=== PATIENT | male | born 1960 | race Caucasian/White ===

== ENCOUNTER 2019-12-25 07:47 | Day surgery (SDC) | payer OTHER ==
[~2019-12-25] VITALS: Ht 190.5 cm; Wt 130.0 kg
[2019-12-25] MEDS ORDERED: NAPROSYN500 MG PO (07:57)
[2019-12-25] MEDS ORDERED: ZOCOR 40MG40 MG PO (07:57)
[2019-12-25] MEDS ORDERED: TYLENOL 500MG500 MG PO (07:57)
[2019-12-25 08:01] VITALS: BP 128/88; PULSE 58; TEMP 97.3
[2019-12-25 09:45] VITALS: BP 100/74; PULSE 56; TEMP 98.4
--- NOTE | 2019-12-25 09:45 | NUR ---
Patient arrives to [facility] via cart, accompanied by Endo RN Anita. He is drowsy, but oriented. He ambulates to the chair in his room. Monitoring is applied - VSS and WNL on room air. He denies any pain or nausea. He is offered and receives juice, water, and a muffin. Call light in reach. Will continue to monitor.
[2019-12-25 10:00] VITALS: BP 123/85; PULSE 53
--- NOTE | 2019-12-25 10:00 | NUR ---
Dr. Simon is at the bedside at this time.
--- NOTE | 2019-12-25 10:00 | NUR ---
VSS and WNL on room air. Denies pain or nausea. Resting comfortably in room. Tolerating PO well.
[2019-12-25 10:15] VITALS: BP 131/88; PULSE 55
--- NOTE | 2019-12-25 10:23 | NUR ---
Patient has met discharge criteria. Discharge instructions are discussed. He denies any questions and verbalizes understanding. PIV is removed with catheter intact and hemostasis achieved. He is changing to his clothing independently.
--- NOTE | 2019-12-25 10:28 | NUR ---
Patient is escorted to the exit via wheelchair by staff. He is discharged to home with ride in private vehicle at 1028.
== END 2019-12-25 10:28 | disposition home or self-care (01) ==
LOC: SDCO 07:47
DX: Z12.11 Encounter for screening for malignant neoplasm of colon (principal); D12.0 Benign neoplasm of cecum; K64.0 First degree hemorrhoids; E78.5 Hyperlipidemia, unspecified; G47.33 Obstructive sleep apnea (adult) (pediatric); Z79.899 Other long term (current) drug therapy
CPT/HCPCS: J2250; J3010; J7030